=== PATIENT | male | born 1975 | race Caucasian/White ===

== ENCOUNTER 2021-01-15 21:54 | Emergency (ER) | payer OTHER ==
[~2021-01-15] VITALS: Ht 177.8 cm; Wt 120.2 kg
[2021-01-15] MEDS ORDERED: ASPIRIN81 MG PO (22:10)
[2021-01-15] MEDS ORDERED: VENTOLIN HFA18 GM INH (22:10)
[2021-01-15] MEDS ORDERED: LIPITOR20 MG PO (22:11)
[2021-01-15] MEDS ORDERED: COZAAR100 MG PO (22:11)
[2021-01-15] MEDS ORDERED: OMEPRAZOLE20 MG PO (22:11)
[2021-01-15] MEDS ORDERED: PROPRANOLOL HCL40 MG PO (22:12)
[2021-01-15] MEDS ORDERED: SALSALATE750 MG PO (22:12)
== END 2021-01-15 23:33 | disposition home or self-care (01) ==
LOC: ED 21:54
DX: S00.33XA Contusion of nose, initial encounter (principal); Y04.8XXA Assault by other bodily force, initial encounter; J45.909 Unspecified asthma, uncomplicated; I10 Essential (primary) hypertension; Z88.2 Allergy status to sulfonamides; Z79.899 Other long term (current) drug therapy; Z79.82 Long term (current) use of aspirin
CPT/HCPCS: 70160; 99284-25